=== PATIENT | male | born 2000 | race Caucasian/White ===

== ENCOUNTER 2023-01-28 21:01 | Emergency (ER) | payer SELFPAY ==
[~2023-01-28] VITALS: Ht 170.2 cm; Wt 86.2 kg
[2023-01-28 21:21] VITALS: BP 120/76; PULSE 76; RESP 16; TEMP 98.3; O2SAT 97
[2023-01-28 22:01] LABS: FLU A ANTIGEN negative (NEGATIVE); FLU B ANTIGEN NEGATIVE (NEGATIVE)
[2023-01-28] MEDS ORDERED: HYDROcodone/APAP 5/325 MG 1 TAB TAB PO ONE (22:40)
[2023-01-28] MEDS ORDERED: KETOROLAC 30 MG/ML VIAL IM ONE (22:40)
[2023-01-28] MEDS ORDERED: AMOX500C25 PO (23:06)
[2023-01-28] MEDS ORDERED: NAPR-54 PO (23:06)
[2023-01-28] MEDS ORDERED: KETOROLAC 60 MG/2 ML VIAL IM ONE (23:22)
[2023-01-28 23:30] VITALS: BP 110/68; PULSE 71; RESP 16; TEMP 98.3; O2SAT 97
== END 2023-01-28 23:30 | disposition home or self-care (01) ==
LOC: MED 21:01
DX: J02.9 Acute pharyngitis, unspecified (principal); Z20.822 Contact with and (suspected) exposure to COVID-19; Z79.1 Long term (current) use of non-steroidal anti-inflammatories (NSAID); Z79.2 Long term (current) use of antibiotics
CPT/HCPCS: 87081; 87426; 87804; 96372; 99283; J1885